=== PATIENT | male | born 1970 | race Caucasian/White ===

== ENCOUNTER 2016-06-10 11:42 | Emergency (ER) | payer OTHER ==
--- NOTE | 2016-06-10 12:12 | ER Document Report ---
ED Medical Screen (RME) - General Stated Complaint: HAND INJURY Notes: 45 yo male c/o piece of wood embedded in right hand. + swelling, redness and pain to right thenar area. Tetnus last year. non diabetic. no fever Physical Exam - Vital signs Vitals: Temp Pulse Resp BP Pulse Ox 97.9 F 79 14 128/74 H 95 06/10/16 11:58 06/10/16 11:58 06/10/16 11:58 06/10/16 11:58 06/10/16 11:58 Course - Vital Signs Vital signs: Temp Pulse Resp BP Pulse Ox 97.9 F 79 14 128/74 H 95 06/10/16 11:58 06/10/16 11:58 06/10/16 11:58 06/10/16 11:58 06/10/16 11:58
[2016-06-10] MEDS ORDERED: LIDOCAINE 4%/TETRACAINE 0.5%/EPI 0.18% 5 ML TOPICAL SOLN TOP ONE (13:05)
--- NOTE | 2016-06-10 13:05 | ER Document Report ---
Addendum entered and electronically signed by LAKEISHA ROJAS NP 06/10/16 14:10 : Discharge - Discharge Clinical Impression: foreign body removal from the rt hand Condition: Good Disposition: HOME, SELF-CARE Instructions: Removal of Subcutaneous Foreign Object ([facility]) Additional Instructions: elevate warm compress to er any concerns Forms: Return to Work Original Note: HPI - HPI Patient complains to provider of: piece of wood in his hand for 10 days Onset: Other - 10 days Onset/Duration: Gradual Pain Level: 2 Context: 45-year-old male was throwing a stick with his daughter 10 days ago and felt a piece of wood go into his right thenar aspect of the thumb. 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 He did get some pus out but the piece of wood did not come out he wants it taken out today. Associated Symptoms: None Exacerbated by: Movement Relieved by: Denies Similar symptoms previously: No Recently seen / treated by doctor: No - ROS ROS below otherwise negative: Yes Systems Reviewed and Negative: Yes All other systems reviewed and negative - DERM Skin Color: Normal Past Medical History - General Information source: Patient - Social History Smoking Status: Never Smoker Chew tobacco use (# tins/day): No Frequency of alcohol use: None Drug Abuse: None Lives with: Family Family History: Reviewed & Not Pertinent Patient has suicidal ideation: No Patient has homicidal ideation: No - Medical History Medical History: Negative Renal/ Medical History: Denies: Hx Peritoneal Dialysis Surgical Hx: Negative Vertical Provider Document - CONSTITUTIONAL Agree With Documented VS: Yes Exam Limitations: No Limitations - INFECTION CONTROL TRAVEL OUTSIDE OF THE [place] IN LAST 30 DAYS: No - HEENT HEENT: Normocephalic - NECK Neck: Supple - RESPIRATORY O2 Sat by Pulse Oximetry: 95 - MUSCULOSKELETAL/EXTREMETIES Musculoskeletal/Extremeties: MAEW, FROM, Tender - swelling, inflamed crusted thenar aspect right thumb, soft tissue - NEURO Level of Consciousness: Awake, Alert - DERM Integumentary: Warm, Dry Course - Re-evaluation Re-evalutation: 06/10/16 14:04 We did get a sliver of wood out that was 2 mm x 1.25 cm out of the wound. I explored the wound irrigated the wound , I explained to the patient we most likely got all of the sliver out she stated that since the size that it felt like. I told him of the wound completely heals then the foreign body is gone if he has any further problems to follow up in the emergency room. - Vital Signs Vital signs: Temp Pulse Resp BP Pulse Ox 97.9 F 79 14 128/74 H 95 06/10/16 11:58 06/10/16 11:58 06/10/16 11:58 06/10/16 11:58 06/10/16 11:58 Procedures - Incision and Drainage Right Hand Time completed: 14:01 Type: Simple Anesthetic type: 1% Lidocaine mL's of anesthetic: 5 Blade size: 11 I&D procedure: Betadine prep applied, Sterile dressing applied Incision Method: Incision made by scalpel Amount/type of drainage: blood, minimal pus Notes: 06/10/16 14:08 piece of wood came out Discharge - Discharge Clinical Impression: foreign body removal from the rt hand Condition: Good Disposition: HOME, SELF-CARE Instructions: Removal of Subcutaneous Foreign Object ([facility]) Additional Instructions: elevate warm compress to er any concerns
[2016-06-10 14:21] VITALS: BP 122/80
== END 2016-06-10 14:20 | disposition home or self-care (01) ==
LOC: ER 11:42
PROC: 0JCJ0ZZ Extirpation of Matter from Right Hand Subcutaneous Tissue and Fascia, Open Approach (ICD-10-PCS; principal; 2016-06-10)
DX: S61.041A Puncture wound with foreign body of right thumb without damage to nail, initial encounter (principal); W22.8XXA Striking against or struck by other objects, initial encounter
CPT/HCPCS: 99283

== ENCOUNTER 2018-10-31 08:24 | Emergency (ER) | payer OTHER ==
--- NOTE | 2018-10-31 09:50 | ER Document Report ---
ED Medical Screen (RME) - General Chief Complaint: High Blood Pressure Stated Complaint: BLOOD PRESSURE ISSUES Time Seen by Provider: 10/31/18 09:47 Mode of Arrival: Ambulatory Information source: Patient Notes: 48-year-old male presented to ED for complaint of lightheaded, dizzy, cloudy feeling, global headache for the last 3 days. Does not have a PCP. States he is never had high blood pressure in the past and for the last 3 days his blood pressures been in the 160s over 100s. States he came in today and his blood pressure is much lower. States he actually feels better now than he has in the last 3 days. Does not have any history of high blood pressure or anything like that. Does not smoke drink or do any drugs. 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 I have greeted and performed a rapid initial assessment of this patient. A comprehensive ED assessment and evaluation of the patient, analysis of test results and completion of medical decision making process will be conducted by an additional ED providers. Dictation of this chart was performed using voice recognition software; therefore, there may be some unintended grammatical errors. TRAVEL OUTSIDE OF THE [place] IN LAST 30 DAYS: No - Related Data Allergies/Adverse Reactions: No Known Allergies Allergy (Verified 10/31/18 08:25) Past Medical History Renal/ Medical History: Denies: Hx Peritoneal Dialysis Physical Exam - Vital signs Vitals: Temp Pulse Resp BP Pulse Ox 98.0 F 80 22 H 141/89 H 95 10/31/18 08:29 10/31/18 08:29 10/31/18 08:29 10/31/18 08:29 10/31/18 08:29 Course - Vital Signs Vital signs: Temp Pulse Resp BP Pulse Ox 98.0 F 80 22 H 141/89 H 95 10/31/18 08:29 10/31/18 08:29 10/31/18 08:29 10/31/18 08:29 10/31/18 08:29
[2018-10-31 10:23] LABS: ABSOLUTE BASOPHILS # (AUTO) 0.1 10^3/uL (0.0-0.2); ABSOLUTE EOSINOPHILS # (AUTO) 0.1 10^3/uL (0.0-0.6); ABSOLUTE LYMPHOCYTES (AUTO) 3.3 10^3/uL (0.5-4.7); ABSOLUTE MONOCYTES (AUTO) 0.4 10^3/uL (0.1-1.4); ABSOLUTE NEUT (AUTO) 3.2 10^3/uL (1.7-8.2); BASOPHILS % (AUTO) 0.8 % (0-2); EOSINOPHILS % (AUTO) 1.6 % (0-6); HEMATOCRIT 46.2 % (37.9-51.0); LYMPHOCYTES % (AUTO) 46.2 % (13-45); MEAN CORPUSCULAR HEMOGLOBIN 31.9 pg (27.0-33.4); MEAN CORPUSCULAR HGB CONC 34.6 g/dL (32.0-36.0); MEAN CORPUSCULAR VOLUME 92 fl (80-97); MONOCYTES % (AUTO) 5.9 % (3-13); PLATELET COUNT 233 10^3/uL (150-450); RED BLOOD COUNT 5.01 10^6/uL (4.35-5.55); RED CELL DISTRIBUTION WIDTH 12.6 % (11.5-14.0); SEGMENTED NEUTROPHILS % (AUTO) 45.5 % (42-78); TOTAL CELLS COUNTED % (AUTO) 100 %; WHITE BLOOD COUNT 7.1 10^3/uL (4.0-10.5)
--- NOTE | 2018-10-31 10:26 | RADIOLOGY REPORT (SQ) ---
EXAM DESCRIPTION: CT HEAD WITHOUT COMPLETED DATE/TIME: 10/31/2018 10:05 am REASON FOR STUDY: Feels cloudy lightheaded dizzy at times. States b COMPARISON: None. TECHNIQUE: Axial images acquired through the brain without intravenous contrast. Images reviewed wi th bone, brain and subdural windows. Additional sagittal and coronal reconstructions were generated. Images stored on PACS. All CT scanners at this facility use dose modulation, iterative reconstruction, and/or weight based d osing when appropriate to reduce radiation dose to as low as reasonably achievable (ALARA). [facility]: Dose Right [facility]: CareDose [facility]: Dose Right [facility]: Teradose 4D [facility]: VOZ RADIATION DOSE: CT Rad equipment meets quality standard of care and radiation dose reduction techniq ues were employed. CTDIvol: 53.2 mGy. DLP: 1017 mGy-cm. mGy. LIMITATIONS: None. FINDINGS: VENTRICLES: Normal size and contour. CEREBRUM: No masses. No hemorrhage. No midline shift. No evidence for acute infarction. Normal gra y/white matter differentiation. No areas of low density in the white matter. CEREBELLUM: No masses. No hemorrhage. No alteration of density. No evidence for acute infarction. EXTRAAXIAL SPACES: No fluid collections. No masses. ORBITS AND GLOBE: No intra- or extraconal masses. Normal contour of globe without masses. CALVARIUM: No fracture. PARANASAL SINUSES: No fluid or mucosal thickening. SOFT TISSUES: No mass or hematoma. OTHER: No other significant finding. IMPRESSION: NORMAL BRAIN CT WITHOUT CONTRAST. EVIDENCE OF ACUTE STROKE: NO. COMMENT: Quality ID # [id number]: Final reports with documentation of one or more dose reduction techniques (e.g., Automated exposure control, adjustment of the mA and/or kV according to patient size, use of iterative reconstruction technique) TECHNICAL DOCUMENTATION: JOB ID: [id number] [employer]- All Rights Reserved Reading location - IP/workstation name: [email or web address]
--- NOTE | 2018-10-31 10:28 | RADIOLOGY REPORT (SQ) ---
EXAM DESCRIPTION: CHEST 2 VIEWS COMPLETED DATE/TIME: 10/31/2018 10:01 am REASON FOR STUDY: Feels cloudy lightheaded dizzy at times. States b COMPARISON: None. EXAM PARAMETERS: NUMBER OF VIEWS: two views TECHNIQUE: Digital Frontal and Lateral radiographic views of the chest acquired. RADIATION DOSE: NA LIMITATIONS: none FINDINGS: LUNGS AND PLEURA: No opacities, masses or pneumothorax. No pleural effusion. MEDIASTINUM AND HILAR STRUCTURES: No masses or contour abnormalities. HEART AND VASCULAR STRUCTURES: Heart normal size. No evidence for failure. BONES: No acute findings. HARDWARE: None in the chest. OTHER: No other significant finding. IMPRESSION: NO ACUTE RADIOGRAPHIC FINDING IN THE CHEST. TECHNICAL DOCUMENTATION: JOB ID: [id number] [employer]- All Rights Reserved Reading location - IP/workstation name: [email or web address]
[2018-10-31 10:32] LABS: INTERNATIONAL RATION (INR) 0.94; PROTHROMBIN TIME 12.6 SEC (11.4-15.4)
[2018-10-31 10:33] LABS: PARTIAL THROMBOPLASTIN TIME 33.6 SEC (23.5-35.8)
[2018-10-31 10:34] LABS: APPEARANCE,URINE CLEAR; COLOR,URINE COLORLESS; GLUCOSE, URINE NEGATIVE (NEGATIVE)
[2018-10-31 10:35] LABS: BILIRUBIN,URINE NEGATIVE (NEGATIVE); KETONES,URINE NEGATIVE (NEGATIVE); LEUKOCYTE ESTERASE,URINE NEGATIVE (NEGATIVE); NITRITE,URINE NEGATIVE (NEGATIVE); PROTEIN,URINE NEGATIVE (NEGATIVE); UROBILINOGEN,URINE NEGATIVE mg/dL (<2.0)
[2018-10-31 10:50] LABS: ALANINE AMINOTRANSFERASE 32 U/L (21-72); ALBUMIN 4.8 g/dL (3.5-5.0); ALKALINE PHOSPHATASE 54 U/L (38-126); ANION GAP 10 (5-19); ASPARTATE AMINO TRANSFERASE 32 U/L (17-59); BILIRUBIN,DIRECT 0.2 mg/dL (0.0-0.4); BILIRUBIN,TOTAL 0.6 mg/dL (0.2-1.3); BLOOD UREA NITROGEN 15 mg/dL (7-20); CARBON DIOXIDE 29 mmol/L (22-30); CHLORIDE 104 mmol/L (98-107); CREATINE KINASE 150 U/L (55-170); GLUCOSE 99 mg/dL (75-110); LIPASE 108.5 U/L (23-300); POTASSIUM 4.7 mmol/L (3.6-5.0); SODIUM 142.7 mmol/L (137-145); TOTAL PROTEIN 8.3 g/dL (6.3-8.2)
[2018-10-31 11:02] LABS: TROPONIN I < 0.012 ng/mL
--- NOTE | 2018-10-31 11:52 | ER Document Report ---
ED Blood Pressure Problem - General Chief Complaint: High Blood Pressure Stated Complaint: BLOOD PRESSURE ISSUES Time Seen by Provider: 10/31/18 09:47 Mode of Arrival: Ambulatory Information source: Patient TRAVEL OUTSIDE OF THE [place] IN LAST 30 DAYS: No - HPI Patient complains to provider of: High blood pressure Onset: Other - Pt states he has had elevated BP's of approx 160/100 over the past several days with intermittent ARCOS. He states he feels better today and his ARCOS is much less. - Related Data Allergies/Adverse Reactions: No Known Allergies Allergy (Verified 10/31/18 08:25) Past Medical History - General Information source: Patient - Social History Smoking Status: Former Smoker Frequency of alcohol use: None Family History: Reviewed & Not Pertinent Patient has suicidal ideation: No Patient has homicidal ideation: No Renal/ Medical History: Denies: Hx Peritoneal Dialysis Review of Systems - Review of Systems Constitutional: No symptoms reported EENT: No symptoms reported Cardiovascular: No symptoms reported Respiratory: No symptoms reported Gastrointestinal: No symptoms reported Musculoskeletal: No symptoms reported Neurological/Psychological: See HPI, Headaches -: Yes All other systems reviewed and negative Physical Exam - Vital signs Vitals: Temp Pulse Resp BP Pulse Ox 98.0 F 80 22 H 141/89 H 95 10/31/18 08:29 10/31/18 08:29 10/31/18 08:29 10/31/18 08:29 10/31/18 08:29 - General General appearance: Appears well In distress: None - HEENT Head: Normocephalic Mouth/Lips: Normal Mucous membranes: Normal Pharynx: Normal Neck: Normal - Respiratory Respiratory status: No respiratory distress Breath sounds: Normal - Cardiovascular Rhythm: Regular Heart sounds: Normal auscultation Murmur: No - Abdominal Inspection: Normal Bowel sounds: Normal - Extremities General upper extremity: Normal inspection General lower extremity: Normal inspection - Neurological Neuro grossly intact: Yes Cognition: Normal Orientation: AAOx4 Motor strength normal: LUE, RUE, LLE, RLE Sensory: Normal Course - Re-evaluation Re-evalutation: 10/31/18 11:58 Pt. feels much better at time of d/c -- BP 140/88 -- expressed desire to go home - Vital Signs Vital signs: Temp Pulse Resp BP Pulse Ox 98.0 F 80 22 H 141/89 H 95 10/31/18 08:29 10/31/18 08:29 10/31/18 08:29 10/31/18 08:29 10/31/18 08:29 - Laboratory Result Diagrams: 10/31/18 10:06 10/31/18 10:06 Laboratory results interpreted by me: 10/31/18 10/31/18 10/31/18 10:06 10:06 10:06 Lymphocytes % 46.2 H Total Protein 8.3 H Urine Ascorbic Acid 20 H - Diagnostic Test Radiology reviewed: Reports reviewed - ct, cxr neg - EKG Interpretation by Me EKG shows normal: Sinus rhythm Rate: Normal Rhythm: NSR - nsr without acute change Discharge - Discharge Clinical Impression: Hypertension Qualifiers: Hypertension type: unspecified Qualified Code(s): I10 - Essential (primary) hypertension Condition: Stable Disposition: HOME, SELF-CARE Instructions: High Blood Pressure ([facility]) Additional Instructions: rest, BP recheck later today and each day for the next week, return if worse Referrals: HENRRY BURNS MD [ACTIVE STAFF] - Follow up as needed
[2018-10-31 12:12] VITALS: BP 131/89
--- NOTE | 2018-10-31 19:29 | EKG REPORT ---
SEVERITY:- NORMAL ECG - SINUS RHYTHM : Confirmed by: Adry Sotomayor MD 31-Oct-2018 19:28:59
== END 2018-10-31 12:11 | disposition home or self-care (01) ==
LOC: ER 08:24
DX: I10 Essential (primary) hypertension (principal); R51 Headache; Z87.891 Personal history of nicotine dependence
CPT/HCPCS: 36415; 70450; 71046; 80053; 81001; 82550; 82553; 82962; 83690; 84484; 85025; 85610; 85730; 93005; 93010; 99284